=== PATIENT | male | born 1955 | race Caucasian/White ===

== ENCOUNTER 2025-07-08 18:16 | Emergency (ER) | payer MEDICARE, BC ==
[~2025-07-08] VITALS: Ht 182.9 cm; Wt 90.7 kg
[2025-07-08] MEDS ORDERED: LIDOCAINE 2% (GLYDO= UROJET) 10 ML JELLY MM ONE ×2 (18:34→19:42)
[2025-07-08 18:35] VITALS: BP 140/90
[2025-07-08] MEDS: LIDOCAINE 2% (GLYDO= UROJET) 10 ML JELLY MM ONE (20:03)
[2025-07-08] MEDS ORDERED: CIPR-262 PO (22:23)
[2025-07-08] MEDS ORDERED: CIPROFLOXACIN HCL 250 MG TABLET ONE (22:34)
[2025-07-08] MEDS: CIPROFLOXACIN HCL 250 MG TABLET PO ONE (22:35)
[2025-07-08 22:42] VITALS: BP 130/90; O2SAT 98
== END 2025-07-08 22:44 | disposition home or self-care (01) ==
LOC: ER 18:33
DX: N99.820 Postprocedural hemorrhage of a genitourinary system organ or structure following a genitourinary system procedure (principal); I25.10 Atherosclerotic heart disease of native coronary artery without angina pectoris; E78.5 Hyperlipidemia, unspecified; N40.0 Benign prostatic hyperplasia without lower urinary tract symptoms; R31.0 Gross hematuria; Z88.5 Allergy status to narcotic agent; Z90.79 Acquired absence of other genital organ(s); Z95.5 Presence of coronary angioplasty implant and graft
CPT/HCPCS: 51702; A4606; A4663